=== PATIENT | female | born 1980 | race Caucasian/White ===

== ENCOUNTER 2016-07-15 13:14 | Inpatient (IN) | payer OTHER ==
[~2016-07-15] VITALS: Ht 175.3 cm; Wt 60.1 kg
[~2016-07-15 13:14] MED LIST: BENADRYL E2.5 MG/1 M PO; BENADRYL25 M2 PO; CARAFATE 1GM1 G PO; CIPRO 500MG TA500 MG PO; FLEXERIL 1010 MG/TAB PO; HUMIRA40 MG/0.1 SQ; LIALDA 1.2 GM1.2 GM PO; MIRENA52 MG IY; PREDNISONE20 MG PO; PRIL40 PO; ZESTRIL 10MG10 MG PO; ZOFRAN ODT4 MG PO; ZYRTEC 10MG10 MG PO
[2016-07-29] VITALS (10 sets, daily range): BP systolic 99–121; BP diastolic 52–82; PULSE 71–115; TEMP 97.5–98.5
[2016-07-29 23:32] LABS: HEMATOCRIT 33.5 % (37.0-47.0); HEMOGLOBIN 11.6 g/dl (12.5-16.0)
[2016-07-30 04:43] VITALS: BP 97/60; PULSE 91; TEMP 98.3
[2016-07-30 07:20] LABS: HEMATOCRIT 32.4 % (37.0-47.0); HEMOGLOBIN 10.9 g/dl (12.5-16.0)
[2016-07-30 07:58] LABS: CALCIUM 8.4 mg/dL (8.4-10.2); CREATININE, serum 0.87 mg/dL (0.52-1.25)
[2016-07-30 09:26] VITALS: BP 115/65; PULSE 87; TEMP 98.2
[2016-07-30 13:23] VITALS: BP 115/62; PULSE 90; TEMP 98.2
[2016-07-30 17:50] VITALS: BP 112/67; PULSE 98; TEMP 98.4
[2016-07-30 21:43] VITALS: BP 123/68; PULSE 92; TEMP 97.7
[2016-07-31 03:30] VITALS: BP 115/78; PULSE 86; TEMP 98
[2016-07-31 05:26] VITALS: BP 121/69; PULSE 89; TEMP 98.3
[2016-07-31 09:37] VITALS: BP 119/71; PULSE 83; TEMP 98.2
[2016-07-31 14:11] VITALS: BP 131/78; PULSE 90; TEMP 97.8
[2016-07-31 17:26] VITALS: BP 127/67; PULSE 81; TEMP 98.2
[2016-07-31 20:16] VITALS: BP 122/76; PULSE 86; TEMP 98.5
[2016-08-01 04:25] VITALS: BP 116/64; PULSE 77; TEMP 97.2
[2016-08-01 09:34] VITALS: BP 133/73; PULSE 86; TEMP 97.9
[2016-08-01 13:20] VITALS: BP 126/74; PULSE 87; TEMP 97.8
== END 2016-08-01 17:23 | disposition home or self-care (01) | DRG 330 ==
LOC: SURG 07-29 09:48
PROVIDERS: Surgery
PROC: 0DTC0ZZ Resection of Ileocecal Valve, Open Approach (ICD-10-PCS; principal; 2016-07-29 12:00)
DX: K50.012 Crohn's disease of small intestine with intestinal obstruction (principal); I10 Essential (primary) hypertension
CPT/HCPCS: A4315; A9284; J0694; J1100; J1200; J1650; J1885; J2250; J2270; J2300; J2405; J2550; J2704; J2795; J3010; J7050; J7120

== ENCOUNTER 2017-05-13 13:28 | Day surgery (SDC) | payer OTHER ==
[2005-08-12 13:28] VITALS: BP 126/70
[~2017-05-13] VITALS: Ht 175.3 cm; Wt 59.1 kg
[2017-05-13 14:04] VITALS: BP 130/82; PULSE 93; TEMP 97.8
[2017-05-13] MEDS ORDERED: PREDNISONE20 MG PO (14:15)
[2017-05-13] MEDS ORDERED: ZOFRAN8 MG PO (14:17)
[2017-05-13 15:51] VITALS: BP 131/73; PULSE 96; TEMP 97.6
[2017-05-13 16:00] VITALS: BP 133/94; PULSE 90
[2017-05-13 16:15] VITALS: BP 131/62; PULSE 90
[2017-05-13 16:30] VITALS: BP 130/75; PULSE 89
== END 2017-05-13 16:45 | disposition home or self-care (01) ==
LOC: SDCO 13:28
DX: K56.600 Partial intestinal obstruction, unspecified as to cause (principal); K50.00 Crohn's disease of small intestine without complications; I10 Essential (primary) hypertension; R51 Headache; D64.9 Anemia, unspecified; J45.909 Unspecified asthma, uncomplicated; K21.9 Gastro-esophageal reflux disease without esophagitis; Z90.49 Acquired absence of other specified parts of digestive tract; R20.0 Anesthesia of skin; I49.9 Cardiac arrhythmia, unspecified; R53.83 Other fatigue; K92.1 Melena
CPT/HCPCS: OP; C1726; J2704

== ENCOUNTER → 2017-08-27 | Outpatient (CLI) | payer OTHER ==
[~2017-08-27] MED LIST changes: +ZOFRAN8 MG PO
== END ==
LOC: COL.RAD 08:39
DX: K50.90 Crohn's disease, unspecified, without complications (principal)
CPT/HCPCS: A9585